=== PATIENT | male | born 1960 | race African-American/Black ===

== ENCOUNTER 2025-07-31 10:39 | Emergency (ER) | payer MEDICARE, MEDICAID ==
[~2025-07-31] VITALS: Ht 182.9 cm; Wt 84.0 kg
[~2025-07-31 10:39] MED LIST: FERROUS SULFATE
[2025-07-31 10:50] VITALS: O2SAT 99
[2025-07-31 10:52] VITALS: BP 139/71; PULSE 75; RESP 16; TEMP 36.9; O2SAT 100
[2025-07-31] MEDS ORDERED: CEFTRIAXONE 1GM/50ML 50 ML IV SCH (14:00)
== END 2025-07-31 14:26 | disposition left against medical advice (07) ==
LOC: ER 10:39 → CANBEDREQ 14:22 → ER 14:26
DX: N44.00 Torsion of testis, unspecified (principal); E78.00 Pure hypercholesterolemia, unspecified; I10 Essential (primary) hypertension; Z98.890 Other specified postprocedural states; Z79.899 Other long term (current) drug therapy
CPT/HCPCS: 76870; 93976; 99284